=== PATIENT | female | born 1975 | race Caucasian/White ===

== ENCOUNTER 2018-12-29 17:57 | Inpatient (IN) | payer MEDICAID ==
[~2018-12-29] VITALS: Ht 165.1 cm; Wt 87.8 kg
[~2018-12-29 17:57] MED LIST: ACET325T45 PO; CEPH500C PO; DOCU-144 PO
[2018-12-29 18:12] VITALS: BP 129/78; PULSE 113; RESP 18
[2018-12-29 18:13] VITALS: Ht 165.1 cm; Wt 87.8 kg
--- NOTE | 2018-12-29 18:21 | TRIAGE ---
OB Triage Datetime Report Generated by CPN: 12/29/2018 18:20 Datetime: 12/29/2018 18:18 Time of Arrival: 12/29/2018 17:37 EGA: 38.4 Arrived By: Ambulatory Arrived From: Home Chief Complaint: PT. CAME IN C/O ABD. PAIN Movement: Present Contractions: Irregular Rupture of Membranes: Denies Vaginal Bleeding: None Vaginal Discharge: Denies Recent Sexual Intercouse: Denies Abdominal Trauma: Not Applicable Patient Complaints: Contractions; Cramping; Back Pain Provider Notified: DELMAR Initial Plan: EFM/SVE Datetime: 12/29/2018 18:08 Vaginal Exam Dilatation (cms): 2.5 Effacement (%): 80 Station: -2 Exam By: kike Vaginal Bleeding: None Cervix, Consistency: Soft Cervix, Position: Posterior
[2018-12-29] MEDS ORDERED: LIDOCAINE 1% (MPF) 30 ML INJ INJ PRN (18:30)
[2018-12-29] MEDS ORDERED: CARBOPROST 250 MCG INJ IM PRN (18:30)
[2018-12-29] MEDS ORDERED: OXYTOCIN 30 UNITS/LR 500 ML IV SCH ×3 (18:30)
[2018-12-29] MEDS ORDERED: OXYTOCIN 30 UNITS/LR 500 ML IV PRN (18:30)
[2018-12-29] MEDS ORDERED: METHYLERGONOVINE 0.2 MG INJ IM PRN (18:30)
[2018-12-29] MEDS ORDERED: MISOPROSTOL 200 MCG TAB PR PRN (18:30)
[2018-12-29] MEDS ORDERED: IBUPROFEN 600 MG TAB PO PRN (18:30)
[2018-12-29] MEDS: BUTORPHANOL 2 MG INJ IV PRN (20:53)
[2018-12-29] MEDS: LACTATED RINGER'S 1,000 ML IV SCH (20:59)
[2018-12-30] MEDS: BUTORPHANOL 2 MG INJ IV PRN (01:21)
[2018-12-30] MEDS: LACTATED RINGER'S 1,000 ML IV SCH ×2 (05:57→16:12)
--- NOTE | 2018-12-30 07:29 | PREAC ---
Date/Time of Note Date/Time of Note DATE: 12/30/18 TIME: 07:28 Anesthesia Eval and Record Evaluation Time Pre-Procedure Interview DATE: 12/30/18 TIME: 07:28 Age 43 Sex female NPO: 8 hrs Preoperative diagnosis iup at term Planned procedure labor epidural Past Medical History Past Medical History: Includes GI: Obesity Surgery & Anesthesia Issues No known issue Meds Anticoagulation: No Beta Francisco within 24 hr: No Reason Beta Francisco not given: Pt. not on B-Francisco Reported Medications Cephalexin* (Cephalexin*) 500 Mg Capsule, 500 MG PO Q6, #28 CAP 12/29/18 Current Medications Lactated Ringer's 1,000 ml @ 125 mls/hr Q8H IV Last administered on 12/30/18at 05:57; Admin Dose 125 MLS/HR; Start 12/29/18 at 18:20 Butorphanol Tartrate (Stadol) 2 mg Q2H PRN IV .PAIN SCALE 6-10 Last administered on 12/30/18at 01:21; Admin Dose 2 MG; Start 12/29/18 at 18:30 Lidocaine (Xylocaine 1% (Mpf)) 30 ml ONCE PRN INJ .EPISIOTOMY; Start 12/29/18 at 18:30 Oxytocin/Lactated Ringer's 500 ml @ 500 mls/hr ONCE POST IV ; Start 12/29/18 at 18:30 Oxytocin/Lactated Ringer's 500 ml @ 125 mls/hr POST IV ; Start 12/29/18 at 18:30 Ibuprofen (Motrin) 600 mg ONCE PRN PO .PAIN 1-5; Start 12/29/18 at 18:30 Oxytocin/Lactated Ringer's 500 ml @ 0 mls/hr ONCE PRN IV .VAGINAL BLEEDING; Start 12/29/18 at 18:30 Methylergonovine Maleate (Methergine) 0.2 mg ONCE PRN IM .VAGINAL BLEEDING; Start 12/29/18 at 18:30 Carboprost Tromethamine (Hemabate) 250 mcg ONCE PRN IM .VAGINAL BLEEDING; Start 12/29/18 at 18:30 Misoprostol (Cytotec) 1,000 mcg ONCE PRN [place] .VAGINAL BLEEDING; Start 12/29/18 at 18:30 Oxytocin/Lactated Ringer's 500 ml @ 0 mls/hr FOR AUGMENTATION IV ; Start 12/29/18 at 18:30 Meds reviewed: Yes Allergies Coded Allergies: No Known Allergy (Unverified , 12/29/18) Allergies Reviewed: Yes Labs/Studies Labs Reviewed: Reviewed by anesthesiologist Result Diagram: 12/29/18 1842 12/29/18 1843 Laboratory Tests 12/29/18 18:42 12/29/18 18:43 Blood Bank Test 12/29/18 18:43 Antibody Screen NEGATIVE Blood Type A POSITIVE Rh Immune Globulin Candidate NO test: Positive Pre-procedure Exam Last vitals Vital Signs Date Temp Pulse Resp B/P (MAP) Pulse Ox O2 O2 Flow FiO2 Time Delivery Rate 12/29/18 98.2 113 18 129/78 Room Air 18:12 (95) Airway: Adequate mouth opening, Adequate thyromental dist Mallampati: Mallampati II Teeth: Normal Lung: Normal Heart: Normal ASA Physical Status ASA physical status: 2 Emergency: None Planned Anesthetic Neuraxial: Epidural Planned Pain Management Parenteral pain med Pre-operative Attestations Prior to commencing anesthesia and surgery, the patient was re-evaluated, there was verification of: *The patient's identity *The results of appropriate recent lab work and preoperative vital signs *The above evaluation not changing prior to induction *Anesthetic plan, risk benefits, alternative and complications discussed with patient/family; questions answered; patient/family understands, accepts and wishes to proceed. TAYLA GILMORE Dec 30, 2018 07:29
[2018-12-30] MEDS ORDERED: NALOXONE (0.4 MG/ML) INJ IV PRN (07:30)
[2018-12-30] MEDS ORDERED: FENTAnyl 2MCG/ML-ROPIV 0.2% 100 ML BAG EPI SCH (07:30)
[2018-12-30] MEDS ORDERED: FENTAnyl 2MCG/ML-ROPIV 0.2% 100 ML ONE (07:31)
--- NOTE | 2018-12-30 18:59 | HP ---
Date/Time of Note Date/Time of Note DATE: 12/30/18 TIME: 18:57 OB - History Hx of Present Free Text/Dictation 44-year-old 6 para 4 with due date of January 08, 2019 with at 38 weeks and 3 days who reported to labor and delivery in early labor yesterday. She also complaining of significant left upper quadrant pain that seems to be musculoskeletal in origin and left back pain. She denies fevers or chills. She already received epidural. She progressed to 4 cm of dilation. Her OB history is significant for history of macrosomia in the past. She reports delivering a 10 pound baby without any difficulties. Care: Good Care Ultrasounds: Normal mid trimester US Obstetrical Complications: None Medical Complications: None Past Family/Social History * Past Medical, Surgical, Family and Obstetric Histories reviewed from chart. OB Admission Exam Vital Signs Vital Signs Vital Signs Date Temp Pulse Resp B/P (MAP) Pulse Ox O2 O2 Flow FiO2 Time Delivery Rate 12/29/18 98.2 113 18 129/78 Room Air 18:12 (95) Physical Exam HEENT: WNL Heart: Rhythm Normal Lungs: Clear, Equal Abdomen: WNL Extremities: Normal Reflexes: Normal Cervical Dilatation: 4cm Last 72 hours Lab Results CBC & BMP 12/29/18 18:42 12/29/18 18:43 Liver Function Test 12/29/18 18:43 Alanine Aminotransferase (ALT/SGPT) 20 Albumin 3.5 Alkaline Phosphatase 242 H Aspartate Amino Transf (AST/SGOT) 19 Direct Bilirubin 0.00 Total Protein 7.2 OB Assessment/Plan Other Assessment: Early labor Left upper quadrant pain and left back pain, unknown etiology Induction Method: per Pitocin Protocol Other plan: Artificial rupture of membranes done. amniotic fluid are clear ABBE JACOBSEN MD Dec 30, 2018 18:59
--- NOTE | 2018-12-30 21:58 | LDN ---
Date/Time of Note Date/Time of Note DATE: 12/30/18 TIME: 21:56 Delivery Summary Weeks of Gestation 39 weeks Placenta Delivered: Spontaneously Meconium: none Episiotomy: No Anesthesia type: Epidural Estimated blood loss: 150 Sponge & Needle done & correct: Yes All needle counts correct: Yes Any foreign bodies felt in the: No Delivery Information Sex Sex: male Apgars 1 Minute: 9 5 Minute: 9 Suctioning Nose & mouth suctioned at uriel: No Delee suction performed: No Umbilical Cord Umbilical cord with: 3 Vessels Cord presentations: no nuchal cord Cord Blood was obtained: Yes Mother & Baby Disposition Disposition Mom & Baby to Maternity; Good: Yes ROBERT ABEL MD Dec 30, 2018 21:58
[2018-12-30] MEDS ORDERED: morphine 10 MG INJ IV ONE (23:00)
[2018-12-31] VITALS (8 sets, daily range): BP systolic 102–140; BP diastolic 60–81; PULSE 71–88; RESP 17–19
[2018-12-31] MEDS ORDERED: OXYTOCIN 30 UNITS/LR 500 ML IV PRN (01:00)
[2018-12-31] MEDS ORDERED: METHYLERGONOVINE 0.2 MG INJ IM PRN (01:00)
[2018-12-31] MEDS ORDERED: ACETAMINOPHEN 325 MG TAB PO PRN (01:00)
[2018-12-31] MEDS ORDERED: BENZOCAINE 20% 56 ML SPRAY TOP PRN (01:00)
[2018-12-31] MEDS: IBUPROFEN 600 MG TAB PO SCH ×5 (01:00→23:39)
[2018-12-31] MEDS ORDERED: DIBUCAINE 1% 30 GM OINT TOP PRN (01:00)
[2018-12-31] MEDS ORDERED: CARBOPROST 250 MCG INJ IM PRN (01:00)
[2018-12-31] MEDS ORDERED: MISOPROSTOL 200 MCG TAB PR PRN (01:00)
[2018-12-31] MEDS ORDERED: WITCH HAZEL/GLYCERIN PAD PR PRN (01:00)
[2018-12-31] MEDS: LACTATED RINGER'S 1,000 ML IV* SCH ×2 (03:00→21:12)
--- NOTE | 2018-12-31 07:43 | DS ---
Date/Time of Note Date/Time of Note DATE: 12/31/18 TIME: 07:42 Obstetrical Discharge Record Final Diagnosis Final Diagnosis: Term delivered Vaginal Delivery Obstetrical Delivery: Spontaneous Complications Augmentation: Yes Induction: Yes Rupture of Membranes: No Condition on Discharge Physical Assessment Voiding: Yes Bowel Movement: Yes Breast: Soft, non-tender, Filling Fundus: Firm Abdomen and Incision: soft, not tender Calf Tenderness: No Patient Condition: Good ABBE JACOBSEN MD Dec 31, 2018 07:42
[2018-12-31] MEDS: HYDROCODONE/APAP (5/325) TAB PO PRN ×3 (07:56→22:20)
[2018-12-31] MEDS: SENNA/DOCUSATE NA (8.6MG/50MG) TAB PO SCH ×2 (11:31→21:12)
--- NOTE | 2018-12-31 12:28 | PAC ---
Date/Time of Note Date/Time of Note DATE: 12/31/18 TIME: 12:28 Post-Anesthesia Notes Post-Anesthesia Note Last documented vital signs Vital Signs Date Temp Pulse Resp B/P (MAP) Pulse Ox O2 O2 Flow FiO2 Time Delivery Rate 12/31/18 97.6 79 18 114/64 Room Air 11:37 (81) Activity: WNL Respiratory function: WNL Cardiovascular function: WNL Mental status: Baseline Pain reasonably controlled: Yes Hydration appropriate: Yes Nausea/Vomiting absent: Yes TAYLA GILMORE Dec 31, 2018 12:28
[2018-12-31] MEDS ORDERED: BISACODYL 10 MG SUPP PR PRN (23:30)
[2018-12-31] MEDS: MAGNESIUM HYDROXIDE 30ML CUP PO PRN (23:40)
--- NOTE | 2019-01-01 01:24 | DELSUM ---
Delivery Summary A-C Datetime Report Generated by Joseph: 01/01/2019 01:24 DELIVERY PERSONNEL Retail Project Merchandiser: Canuto, Malia MATERNAL INFORMATION Delivery Anesthesia: Epidural Medications in Delivery: LR WITH 30 UNITS OF PITOCIN Delivery QBL (ml): 150 Placenta Cultured: No Maternal Complications: None LABOR SUMMARY EDC: 01/08/2019 00:00 No. Babies in Womb: 1 Attempted: No Labor Anesthesia: Epidural LABOR INFORMATION Reason for Induction: Not Applicable Onset of Labor: 12/29/2018 19:00 Complete Dilatation: 12/30/2018 20:44 Oxytocin: Augmentation (Annotations: Data stored by [facility] on behalf of user) Group B Beta Strep: Negative Antibiotics # of Doses: 0 Steroids Given: None Reason Steroids Not Administered: Not Applicable MEMBRANES Membranes Rupture Method: Artificial Rupture of Membranes: 12/30/2018 18:49 Length of Rupture (hr): 2.93 Amniotic Fluid Color: Clear Amniotic Fluid Amount: Small Amniotic Fluid Odor: None STAGES OF LABOR Stage 1 hr: 25 Stage 1 min: 44 Stage 2 hr: 1 Stage 2 min: 1 Stage 3 hr: 0 Stage 3 min: 4 Total Time in Labor hr: 26 Total Time in Labor min: 49 VAGINAL DELIVERY Episiotomy: None Laceration Extension: N/A Laceration Type: None Laceration Repair: Not Applicable Initial Vag Sponge Count: 10 Final Vag Sponge Count: 10 Initial Vag Sharps Count: 1 Final Vag Sharps Count: 1 Sponge Count Correct: Yes Sharps Count Correct: Yes BABY A INFORMATION Infant Delivery Date/Time: 12/30/2018 21:45 Method of Delivery: Vaginal Born in Route : No : N/A Forceps: N/A Vacuum Extraction: N/A Shoulder Dystocia : No SHOULDER DYSTOCIA BABY A Delivery Date/Time: 12/30/2018 21:45 PRESENTATION/POSITION BABY A Presentation: Cephalic Cephalic Presentation: Vertex Vertex Position: Left Occipital Anterior Breech Presentation: Complete PLACENTA INFORMATION BABY A Placenta Delivery Time : 12/30/2018 21:49 Placenta Method of Delivery: Spontaneous Placenta Status: Delivered SCORES BABY A Heart Rate 1 min: >100 bpm Resp Effort 1 min: Good Cry Reflex Irritability 1 min: Cough/Sneeze/Pulls Away Muscle Tone 1 min: Active Motion Color 1 min: Body [place], Extremit Blue Resuscitation Effort 1 min: Tactile Stimulation SCORE 1 MIN: 9 Heart Rate 5 min: >100 bpm Resp Effort 5 min: Good Cry Reflex Irritability 5 min: Cough/Sneeze/Pulls Away Muscle Tone 5 min: Active Motion Color 5 min: Body [place], Extremit Blue Resuscitation Effort 5 min: Tactile Stimulation SCORE 5 MIN: 9 INFORMATION BABY A Gestational Age at Delivery: 38.5 Gestational Status: Early Term- 37- 38.6 Weeks Infant Outcome : Liveborn, with signs of life Infant Condition : Stable Sex: Male IDENTIFICATION/MEDS BABY A ID Band Number: [id number] ID Band Location: Right Leg; Left Arm Sensor Applied: Yes Sensor Number: [id number] Sensor Location : Cord Clamp Vitamin K Given : Not Given Erythromycin Given: Not Given WEIGHT/LENGTH BABY A Birthweight (gm): 4025 Weight (lb): 8 Weight (oz): 14 Length (in): 19.50 Infant Length (cm): 49.53 CORD INFORMATION BABY A No. Cord Vessels: 3 Nuchal Cord : N/A Cord Blood Taken: Yes Infant Suction: Mouth; Nose ASSESSMENT BABY A Complications: None Physical Findings at Delivery: Within Normal Limits Infant Respirations: Appears Normal Party Supply Specialist/ALS Called : No Care By: Hank NELSON Transferred To: Remains with Mother
[2019-01-01] MEDS: LACTATED RINGER'S 1,000 ML IV* SCH (01:54)
[2019-01-01] MEDS: HYDROCODONE/APAP (5/325) TAB PO PRN ×2 (03:24→15:04)
[2019-01-01 04:30] VITALS: BP 136/78; PULSE 88; RESP 18
[2019-01-01] MEDS: IBUPROFEN 600 MG TAB PO SCH ×4 (06:19→23:37)
[2019-01-01] MEDS ORDERED: OXYCODONE/ACETAMINOPHEN (5/325) TAB PO PRN (06:30)
[2019-01-01 08:15] VITALS: BP 120/66; PULSE 79; RESP 17
[2019-01-01] MEDS: SENNA/DOCUSATE NA (8.6MG/50MG) TAB PO SCH ×2 (08:56→21:01)
[2019-01-01] MEDS: MAGNESIUM HYDROXIDE 30ML CUP PO PRN (08:56)
[2019-01-01] MEDS ORDERED: DIPHTH/TET/ACEL PERTUSS (ADULT) 0.5 ML VIAL IM* ONE (09:00)
[2019-01-01] MEDS ORDERED: BISACODYL 10 MG SUPP PR ONE (10:00)
[2019-01-01] MEDS ORDERED: MINERAL OIL 30ML CUP PO ONE (10:00)
[2019-01-01] MEDS ORDERED: MAGNESIUM CITRATE 300 ML BTL PO ONE (10:00)
[2019-01-01] MEDS ORDERED: ONDANSETRON (ODT) 4 MG TAB ODT STA (12:33)
[2019-01-01] MEDS ORDERED: NA PHOSPHATE/BIPHOS 133 ML ENEMA PR ONE (13:00)
[2019-01-01] MEDS ORDERED: SENNA/DOCUSATE NA (8.6MG/50MG) TAB PO PRN (14:00)
--- NOTE | 2019-01-01 14:06 | CONS ---
Assessment/Plan Assessment/Plan Hospital Course (Demo Recall) Assessment and plan 1. Abdominal pain. Etiology unknown at present. Follow-up on CT scan of the abdomen and pelvis. Will provide with laxatives as needed for constipation. Discussed with pharmacy, will provide with appropriate analgesics. Follow-up on urine culture. Follow-up on lipase 2. Constipation. Provide with laxatives with senna lax. Suppository as needed. 3. Anemia. Likely acute blood loss given recent delivery. Monitor H&H trend. 4. Leukocytosis. Monitor trend. Antibiotic regimen pending clinical course Discussed POC with Dr. Feng Consultation Date/Type/Reason Admit Date/Time Dec 29, 2018 at 18:15 Reason for Consultation Medical management Date/Time of Note DATE: 01/01/19 TIME: 13:58 Hx of Present Illness this is a 43-year-old female 6 para 5 who just had recent vaginal delivery on December 30, 2018 who reports having diffuse abdominal pain startinig from left upper abdominial quadrant and radiating now towards whole abdomen and back. She does report that she has not had bowel movement since December 20, 2018. Patient also states that she has had cholelithiasis with cholecystectomy in the past. She denies any nausea vomiting. Only reports constipation and diffuse abdominal pain. No fevers noted. Labs are pending at present. We will evalu ate her for the aformentiond issues. 12 point review of systems obtained entirely negative except as mentioned in history of present illness Past Medical History Medical/surgical history 1. 6 para 5 2. Reported cholelithiasis with cholecystectomy Home Meds Reported Medications Cephalexin* (Cephalexin*) 500 Mg Capsule, 500 MG PO Q6, #28 CAP 12/29/18 Medications Current Medications Lactated Ringer's 1,000 ml @ 125 mls/hr Q8H IV* Last administered on 12/31/18at 03:00; Admin Dose 125 MLS/HR; Start 12/31/18 at 00:35 Ibuprofen (Motrin) 600 mg Q6 PO Last administered on 01/01/19at 12:17; Admin Dose 600 MG; Start 12/31/18 at 01:00 Acetaminophen (Tylenol Tab) 650 mg Q4H PRN PO .PAIN 1-5; Start 12/31/18 at 01:00 Acetaminophen/ Hydrocodone Bitart ([place] (5/325)) 1 tab Q4H PRN PO .PAIN 1-5 Last administered on 01/01/19at 03:24; Admin Dose 1 TAB; Start 12/31/18 at 01:00 Senna/Docusate Sodium (Senokot-S) 1 tab BID PO Last administered on 01/01/19at 08:56; Admin Dose 1 TAB; Start 12/31/18 at 09:00 Witch Karoline/ Glycerin (Tucks Pads) 1 pad BEDSIDE MEDICATION PRN [place] .HEMORRHOID/EPISIOTOMY PAIN; Start 12/31/18 at 01:00 Benzocaine (Dermoplast [place]) 1 spray BEDSIDE MEDICATION PRN [place] .HEMMORHOID/EPISIOTOMY PAIN; Start 12/31/18 at 01:00 Dibucaine (Nupercainal) 1 applic BEDSIDE MEDICATION PRN [place] .HEMM [place]HOID/EPISIOTOMY; Start 12/31/18 at 01:00 Oxytocin/Lactated Ringer's 500 ml @ 0 mls/hr ONCE PRN IV .VAGINAL BLEEDING; Start 12/31/18 at 01:00 Methylergonovine Maleate (Methergine) 0.2 mg ONCE PRN IM .VAGINAL BLEEDING; Start 12/31/18 at 01:00 Carboprost Tromethamine (Hemabate) 250 mcg ONCE PRN IM .VAGINAL BLEEDING; Start 12/31/18 at 01:00 Misoprostol (Cytotec) 1,000 mcg ONCE PRN [place] .VAGINAL BLEEDING; Start 12/31/18 at 01:00 Magnesium Hydroxide (Milk Of Mag) 30 ml BID PRN PO CONSTIPATION Last ad ministered on 01/01/19at 08:56; Admin Dose 30 ML; Start 12/31/18 at 23:30 Bisacodyl (Dulcolax Supp) 10 mg DAILY PRN [place] CONSTIPATION Last administered on 01/01/19at 03:24; Admin Dose 10 MG; Start 12/31/18 at 23:30 Oxycodone/ Acetaminophen (Percocet (5/ 325)) 2 tab Q4H PRN PO MODERATE PAIN LEVEL 4-6 Last administered on 01/01/19at 06:43; Admin Dose 2 TAB; Start 01/01/19 at 06:30 Allergies: Coded Allergies: No Known Allergy (Unverified , 12/29/18) Family History Significant Family History: no pertinent family hx Social History Alcohol Use: none Smoking Status: Never smoker Drug Use: none Exam/Review of Systems Exam Vitals Vital Signs Date Temp Pulse Resp B/P (MAP) Pulse Ox O2 O2 Flow FiO2 Time Delivery Rate 01/01/19 98.2 79 17 120/66 Room Air 08:15 (84) Intake and Output 12/31/18 12/31/18 01/01/19 1515:00 23:00 07:00 IntakeIntake Total 375 ml BalanceBalance 375 ml Constitutional: alert, oriented Psych: nl mood/affect Head: normocephalic Eyes: nl conjunctiva Neck: supple, non-tender Respiratory: clear to auscultation Cardiovascular: other (Regular rate) Gastrointestinal: tender (Appears slightly distended likely from previous ) Extremities: normal pulses Neurological: HAND CLOTH FOLDER II-XII intact, nl mental status, nl speech Results Result Diagram: 12/31/18 0443 12/30/18 2317 Medications Medication Current Medications Lactated Ringer's 1,000 ml @ 125 mls/hr Q8H IV* Last administered on 12/31/18at 03:00; Admin Dose 125 MLS/HR; Start 12/31/18 at 00:35 Ibuprofen (Motrin) 600 mg Q6 PO Last administered on 01/01/19at 12:17; Admin Dose 600 MG; Start 12/31/18 at 01:00 Acetaminophen (Tylenol Tab) 650 mg Q4H PRN PO .PAIN 1-5; Start 12/31/18 at 01:00 Acetaminophen/ Hydrocodone Bitart ([place] (5/325)) 1 tab Q4H PRN PO .PAIN 1-5 Last administered on 01/01/19at 03:24; Admin Dose 1 TAB; Start 12/31/18 at 01:00 Senna/Docusate Sodium (Senokot-S) 1 tab BID PO Last administered on 01/01/19at 08:56; Admin Dose 1 TAB; Start 12/31/18 at 09:00 Witch Karoline/ Glycerin (Tucks Pads) 1 pad BEDSIDE MEDICATION PRN [place] .HEMORRHOID/EPISIOTOMY PAIN; Start 12/31/18 at 01:00 Benzocaine (Dermoplast [place]) 1 spray BEDSIDE MEDICATION PRN TOP .HEMMORHOID/EPISIOTOMY PAIN; Start 12/31/18 at 01:00 Dibucaine (Nupercainal) 1 applic BEDSIDE MEDICATION PRN TOP .HEMMORHOID/EPISIOTOMY; Start 12/31/18 at 01:00 Oxytocin/Lactated Ringer's 500 ml @ 0 mls/hr ONCE PRN IV .VAGINAL BLEEDING; Start 12/31/18 at 01:00 Methylergonovine Maleate (Methergine) 0.2 mg ONCE PRN IM .VAGINAL BLEEDING; Start 12/31/18 at 01:00 Carboprost Tromethamine (Hemabate) 250 mcg ONCE PRN IM .VAGINAL BLEEDING; Start 12/31/18 at 01:00 Misoprostol (Cytotec) 1,000 mcg ONCE PRN [place] .VAGINAL BLEEDING; Start 12/31/18 at 01:00 Magnesium Hydroxide (Milk Of Mag) 30 ml BID PRN PO CONSTIPATION Last administered on 01/01/19at 08:56; Admin Dose 30 ML; Start 12/31/18 at 23:30 Bisacodyl (Dulcolax Supp) 10 mg DAILY PRN [place] CONSTIPATION Last administered on 01/01/19at 03:24; Admin Dose 10 MG; Start 12/31/18 at 23:30 Oxycodone/ Acetaminophen (Percocet (5/ 325)) 2 tab Q4H PRN PO MODERATE PAIN LEVEL 4-6 Last administered on 01/01/19at 06:43; Admin Dose 2 TAB; Start 01/01/19 at 06:30 BRYCE SUAREZ NP Jan 01, 2019 14:06
[2019-01-01 16:00] VITALS: BP 132/77; PULSE 88; RESP 18
[2019-01-01] MEDS ORDERED: MINERAL OIL 133 ML ENEMA PR ONE (18:00)
[2019-01-01] MEDS: LACTULOSE 30ML CUP PO SCH ×3 (18:10→23:00)
[2019-01-01] MEDS: SOD CHLORIDE 0.9% 1,000 ML IV SCH (18:10)
[2019-01-01 19:50] VITALS: BP 116/67; PULSE 92; RESP 19
[2019-01-01] MEDS: HEPARIN 5,000 UNIT/1 ML VIAL SC SCH (22:32)
[2019-01-02 00:25] VITALS: BP 153/87; PULSE 103; RESP 20
[2019-01-02] MEDS ORDERED: ONDANSETRON 4 MG INJ IV PRN (00:30)
[2019-01-02] MEDS ORDERED: KETOROLAC 30 MG INJ IV STA (00:31)
[2019-01-02] MEDS ORDERED: ONDANSETRON 4 MG INJ IV STA (00:35)
[2019-01-02] MEDS ORDERED: ONDANSETRON INJ 8 MG in DEXTROSE 5% 50 ML IV ONE (01:00)
[2019-01-02] MEDS ORDERED: NA PHOSPHATE/BIPHOS 133 ML ENEMA PR ONE (01:00)
[2019-01-02] MEDS ORDERED: ONDANSETRON INJ 8 MG in DEXTROSE 5% 50 ML IV PRN (01:00)
[2019-01-02] MEDS ORDERED: ACETAMINOPHEN 1000MG/100ML IV 100 ML IVPB ONE (01:00)
[2019-01-02] MEDS: LACTULOSE 30ML CUP PO SCH (01:00)
[2019-01-02 03:40] VITALS: BP 120/61; PULSE 85; RESP 19
[2019-01-02] MEDS: SOD CHLORIDE 0.9% 1,000 ML IV SCH ×2 (04:26→15:05)
[2019-01-02] MEDS: IBUPROFEN 600 MG TAB PO SCH ×2 (06:00)
[2019-01-02] MEDS: HEPARIN 5,000 UNIT/1 ML VIAL SC SCH ×2 (06:01→15:01)
[2019-01-02] MEDS ORDERED: HYDROmorphONE 1 MG/ML SYG IV ONE (07:00)
[2019-01-02 08:30] VITALS: BP 146/70; PULSE 83; RESP 18
[2019-01-02] MEDS: SENNA/DOCUSATE NA (8.6MG/50MG) TAB PO SCH (09:00)
[2019-01-02] MEDS ORDERED: KETOROLAC 30 MG INJ IV PRN (11:00)
[2019-01-02 12:15] VITALS: BP 126/65; PULSE 93; RESP 20
--- NOTE | 2019-01-02 14:21 | PN ---
Date/Time of Note Date/Time of Note DATE: 01/02/19 TIME: 14:19 Assessment/Plan VTE Prophylaxis Risk score (from [facility])>0 risk: 1 SCD applied (from [facility]): No SCD contraindicated: other Pharmacological prophylaxis: heparin Lines/Catheters IV Catheter Type (from [facility]): Peripheral IV Assessment/Plan Hospital Course 1. Abdominal pain. Repeat KUB with no acute findings. Patient did report h aving bowel movement x6. Continue with laxatives. Overall improved 2. Constipation. Encourage oral fluid intake. Encourage ambulation. Improved with laxatives. Patient did have bowel movement. 3. Anemia. Monitor H&H trend. Stable at present. 4. Leukocytosis. Monitor trend. Antibiotic regimen pending clinical course Disposition and plan. Overall improved. Stable for discharge from medical standpoint. Discussed POC with Dr. Feng Result Diagram: 01/02/19 134 01/01/19 1404 Results 24hrs Laboratory Tests Test 01/01/19 18:00 01/02/19 13:45 Urine Color ASHLEY Urine Clarity CLEAR Urine pH 5.0 Urine Specific [place] 1.029 Urine Ketones 1+ H Urine Nitrite NEGATIVE Urine Bilirubin NEGATIVE Urine Urobilinogen NEGATIVE Urine Leukocyte Esterase NEGATIVE Urine Microscopic RBC 13 H Urine Microscopic WBC 3 Urine Mucus MODERATE Urine Hemoglobin 1+ H Urine Glucose NEGATIVE Urine Total Protein 1+ H White Blood Count 14.4 H Red Blood Count 3.51 L Hemoglobin 9.8 L Hematocrit 30.2 L Mean Corpuscular Volume 86.0 Mean Corpuscular Hemoglobin 27.9 L Mean Corpuscular Hemoglobin Concent 32.5 Red Cell Distribution Width 15.3 H Platelet Count 280 Mean Platelet Volume 9.9 Immature Granulocytes % 1.200 H Neutrophils % 89.4 H Lymphocytes % 5.7 L Monocytes % 3.5 Eosinophils % 0.0 Basophils % 0.2 Nucleated Red Blood Cells % 0.0 Immature Granulocytes # 0.170 H Neutrophils # 12.9 H Lymphocytes # 0.8 Monocytes # 0.5 Eosinophils # 0.0 Basophils # 0.0 Nucleated Red Blood Cells # 0.0 Subjective 24 Hr Interval Summary Free Text/Dictation Patient reports less abdominal pain. Exam/Review of Systems Exam Vitals Vital Signs Date Temp Pulse Resp B/P (MAP) Pulse Ox O2 O2 Flow FiO2 Time Delivery Rate 01/02/19 98.6 93 20 126/65 Room Air 12:15 (85) 01/02/19 99 00:25 Intake and Output 01/01/19 01/01/19 01/02/19 1515:00 23:00 07:00 IntakeIntake Total 100 ml 354 ml BalanceBalance 100 ml 354 ml Exam Constitutional: alert, oriented Psych: nl mood/affect Head: normocephalic Eyes: nl conjunctiva Neck: supple, non-tender Respiratory: clear to auscultation Cardiovascular: other (Regular rate) Gastrointestinal: tender (Appears slightly distended likely from previous ) Extremities: normal pulses Neurological: MEDICAL STAFFING COORDINATOR II-XII intact, nl mental status, nl speech Results Results 24hrs Laboratory Tests Test 01/01/19 18:00 01/02/19 13:45 Urine Color ASHLEY Urine Clarity CLEAR Urine pH 5.0 Urine Specific [place] 1.029 Urine Ketones 1+ H Urine Nitrite NEGATIVE Urine Bilirubin NEGATIVE Urine Urobilinogen NEGATIVE Urine Leukocyte Esterase NEGATIVE Urine Microscopic RBC 13 H Urine Microscopic WBC 3 Urine Mucus MODERATE Urine Hemoglobin 1+ H Urine Glucose NEGATIVE Urine Total Protein 1+ H White Blood Count 14.4 H Red Blood Count 3.51 L Hemoglobin 9.8 L Hematocrit 30.2 L Mean Corpuscular Volume 86.0 Mean Corpuscular Hemoglobin 27.9 L Mean Corpuscular Hemoglobin Concent 32.5 Red Cell Distribution Width 15.3 H Platelet Count 280 Mean Platelet Volume 9.9 Immature Granulocytes % 1.200 H Neutrophils % 89.4 H Lymphocytes % 5.7 L Monocytes % 3.5 Eosinophils % 0.0 Basophils % 0.2 Nucleated Red Blood Cells % 0.0 Immature Granulocytes # 0.170 H Neutrophils # 12.9 H Lymphocytes # 0.8 Monocytes # 0.5 Eosinophils # 0.0 Basophils # 0.0 Nucleated Red Blood Cells # 0.0 Medications Medication Current Medications Ibuprofen (Motrin) 600 mg Q6 PO Last administered on 01/01/19at 18:11; Admin Dose 600 MG; Start 12/31/18 at 01:00; Status Hold Acetaminophen (Tylenol Tab) 650 mg Q4H PRN PO .PAIN 1-5; Start 12/31/18 at 01:00 Acetaminophen/ Hydrocodone Bitart ([place] (5/325)) 1 tab Q4H PRN PO .PAIN 1-5 Last administered on 01/01/19at 15:04; Admin Dose 1 TAB; Start 12/31/18 at 01:00 Senna/Docusate Sodium (Senokot-S) 1 tab BID PO Last administered on 01/01/19at 21:01; Admin Dose 1 TAB; Start 12/31/18 at 09:00 Witch Karoline/ Glycerin (Tucks Pads) 1 pad BEDSIDE MEDICATION PRN [place] .HEMORRHOID/EPISIOTOMY PAIN; Start 12/31/18 at 01:00 Benzocaine (Dermoplast [place]) 1 spray BEDSIDE MEDICATION PRN TOP .HEMMORHOID/EPISIOTOMY PAIN; Start 12/31/18 at 01:00 Dibucaine (Nupercainal) 1 applic BEDSIDE MEDICATION PRN TOP .HEMMORH OID/EPISIOTOMY; Start 12/31/18 at 01:00 Oxytocin/Lactated Ringer's 500 ml @ 0 mls/hr ONCE PRN IV .VAGINAL BLEEDING; Start 12/31/18 at 01:00 Methylergonovine Maleate (Methergine) 0.2 mg ONCE PRN IM .VAGINAL BLEEDING; Start 12/31/18 at 01:00 Carboprost Tromethamine (Hemabate) 250 mcg ONCE PRN IM .VAGINAL BLEEDING; Start 12/31/18 at 01:00 Misoprostol (Cytotec) 1,000 mcg ONCE PRN [place] .VAGINAL BLEEDING; Start 12/31/18 at 01:00 Magnesium Hydroxide (Milk Of Mag) 30 ml BID PRN PO CONSTIPATION Last admin istered on 01/01/19at 08:56; Admin Dose 30 ML; Start 12/31/18 at 23:30 Bisacodyl (Dulcolax Supp) 10 mg DAILY PRN [place] CONSTIPATION Last administered on 01/01/19at 03:24; Admin Dose 10 MG; Start 12/31/18 at 23:30 Oxycodone/ Acetaminophen (Percocet (5/ 325)) 2 tab Q4H PRN PO MODERATE PAIN LEVEL 4-6 Last administered on 01/01/19at 06:43; Admin Dose 2 TAB; Start 01/01/19 at 06:30 Senna/Docusate Sodium (Senokot-S) 1 tab BID PRN PO constipation ; Start 01/01/19 at 14:00 Sodium Chloride 1,000 ml @ 100 mls/hr Q10H IV Last administered on 01/02/19at 04:26; Admin Dose 100 MLS/HR; Start 01/01/19 at 18:00 Heparin Sodium (Porcine) (Heparin (5000 Units/1ml)) 5,000 unit Q8 SC Last administered on 01/02/19at 06:01; Admin Dose 5,000 UNIT; Start 01/01/19 at 22:00 Ondansetron HCl (Zofran Inj) 4 mg Q6H PRN IV NAUSEA AND/OR VOMITING; Start 01/02/19 at 00:30 Ketorolac Tromethamine (Toradol) 30 mg Q6H PRN IV PAIN LEVEL 1-3 Last administered on 01/02/19at 11:17; Admin Dose 30 MG; Start 01/02/19 at 11:00; Stop 01/05/19 at 10:59 BRYCE SUAREZ NP Jan 02, 2019 14:21
--- NOTE | 2019-01-02 15:46 | PD.PPDC ---
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
[2019-01-02 16:00] VITALS: BP 138/78; PULSE 70; RESP 18
--- NOTE | 2019-01-04 15:39 | QN ---
Documentation Comment 01.04.19 Was notified today of patient's blood infection (with MRSA). Called out to family and spoke to Shawn Desir () to inform them of finding. Patient and were notified already and were in the ER for follow up when phone call was made. Discussed case with BRYCE Veloz NP Jan 04, 2019 15:39
== END 2019-01-02 19:02 | disposition home or self-care (01) | DRG 807 ==
LOC: OBT 17:57 → L-D 17:58 → OBT 18:15 → L-D 20:04 → MS1 12-31 01:01
PROVIDERS: ADMIT Specialist; ATTEND Specialist
PROC: 10E0XZZ Delivery of Products of Conception, External Approach (ICD-10-PCS; principal; 2018-12-30)
PROC: 3E033VJ Introduction of Other Hormone into Peripheral Vein, Percutaneous Approach (ICD-10-PCS; 2018-12-30)
DX: O99.02 Anemia complicating childbirth (principal); Z37.0 Single live birth; Z3A.39 39 weeks gestation of pregnancy
CPT/HCPCS: 62322; 74018; 74176; 76815; 80048; 80053; 81001; 82150; 83690; 84560; 85025; 85610; 85730; 86592; 86850; 86900; 86901; 87086; 90715; G0463; J0131; J0595; J1170; J1644; J1885; J2270; J2405; J2590; J3010; J7030; J7120

== ENCOUNTER 2019-01-04 15:13 | Inpatient (IN) | payer MEDICAID ==
[~2019-01-04] VITALS: Ht 312.4 cm; Wt 81.1 kg
[2019-01-04] MEDS ORDERED: SODIUM CHLORIDE 0.9% 1L BAG IV* STA (15:21)
[2019-01-04] MEDS ORDERED: CEFEPIME 2GM/50 ML (PMX) 50 ML IVPB STA (15:21)
[2019-01-04] MEDS ORDERED: VANCOMYCIN 1 GM (PMX) 250 ML IVPB ONE (15:30)
[2019-01-04] MEDS ORDERED: ONDANSETRON 4 MG INJ ONE (15:52)
[2019-01-04] MEDS ORDERED: ONDANSETRON 4 MG INJ IV STA (15:53)
[2019-01-04] MEDS ORDERED: morphine 10 MG INJ IV ONE (16:30)
[2019-01-04] MEDS ORDERED: IOHEXOL 300MG/ML 150 ML BTL ONE (16:39)
[2019-01-04] MEDS ORDERED: SOD CHLORIDE 0.9% 100 ML ONE ×2 (16:39→17:07)
[2019-01-04] MEDS ORDERED: IOHEXOL 100 ML ONE (17:07)
[2019-01-04] MEDS ORDERED: MAGNESIUM SULFATE 4 GM/100 ML 100 ML IV SCH (18:00)
[2019-01-04] MEDS ORDERED: NACL 0.9% 3 ML SYG IV SCH ×2 (18:00→19:30)
[2019-01-04] MEDS ORDERED: CA GLUCONATE (GM) 10% 10ML INJ IV PRN (18:00)
[2019-01-04] MEDS ORDERED: ONDANSETRON 4 MG INJ IV PRN (19:30)
[2019-01-04] MEDS ORDERED: ALBUTEROL/IPRATROPIUM (NEB) 3 ML AMP HHN PRN (19:30)
[2019-01-04] MEDS ORDERED: hydrALAzine 20 MG INJ IV PRN (19:30)
[2019-01-04] MEDS ORDERED: DOCUSATE SODIUM 100 MG CAP PO PRN (19:30)
[2019-01-04] MEDS ORDERED: VANCOMYCIN IV PER PHARMACY XX SCH (19:30)
[2019-01-04] MEDS ORDERED: MAGNESIUM HYDROXIDE 30ML CUP PO PRN (19:30)
[2019-01-04] MEDS ORDERED: NITROGLYCERIN (SL) 0.4 MG TAB SL PRN (19:30)
[2019-01-04] MEDS ORDERED: ACETAMINOPHEN 325 MG TAB PO PRN (19:30)
[2019-01-04] MEDS: morphine 2 MG INJ IV PRN (20:36)
[2019-01-04] MEDS: SOD CHLORIDE 0.9% 1,000 ML IV SCH (20:49)
[2019-01-04] MEDS: MAGNESIUM SULFATE 20 GM/500 ML 500 ML IV SCH (20:49)
[2019-01-04] MEDS: CEFEPIME 2GM/50 ML (PMX) 50 ML IVPB SCH (22:00)
[2019-01-04] MEDS: METOCLOPRAMIDE 10 MG INJ IV SCH (22:57)
[2019-01-04] MEDS: KETOROLAC 30 MG INJ IV PRN (22:58)
[2019-01-05] VITALS (22 sets, daily range): BP systolic 113–146; BP diastolic 77–90; PULSE 78–93; RESP 17–37; Ht 312.4 cm; Wt 81.1 kg
[2019-01-05] MEDS: VANCOMYCIN 1 GM 250 ML IVPB SCH ×3 (01:20→15:55)
[2019-01-05] MEDS: MAGNESIUM SULFATE 20 GM/500 ML 500 ML IV SCH ×2 (03:40→08:59)
[2019-01-05] MEDS: SOD CHLORIDE 0.9% 1,000 ML IV SCH ×2 (05:22→09:00)
[2019-01-05] MEDS: CEFEPIME 2GM/50 ML (PMX) 50 ML IVPB SCH ×3 (05:39→21:26)
[2019-01-05] MEDS: FAMOTIDINE 20 MG INJ IV SCH (05:39)
[2019-01-05] MEDS: METOCLOPRAMIDE 10 MG INJ IV SCH (05:39)
[2019-01-05] MEDS ORDERED: PANTOPRAZOLE 40 MG INJ IV SCH (06:00)
[2019-01-05] MEDS: KETOROLAC 30 MG INJ IV PRN ×4 (06:09→18:16)
[2019-01-05] MEDS ORDERED: MAGNESIUM CITRATE 300 ML BTL PO ONE (10:00)
[2019-01-05] MEDS: RIFAMPIN 300 MG CAP PO SCH (15:05)
[2019-01-05] MEDS: morphine 2 MG INJ IV PRN (22:21)
[2019-01-06] VITALS (23 sets, daily range): BP systolic 129–151; BP diastolic 72–101; PULSE 75–101; RESP 21–33
[2019-01-06] MEDS: VANCOMYCIN 1.25 GM/NS 250 ML 250 ML IVPB SCH ×2 (00:25→08:50)
[2019-01-06] MEDS: LORAZEPAM 2 MG INJ IV PRN (00:25)
[2019-01-06] MEDS: SOD CHLORIDE 0.9% 1,000 ML IV SCH (00:32)
[2019-01-06] MEDS: FAMOTIDINE 20 MG INJ IV SCH (05:46)
[2019-01-06] MEDS: CEFEPIME 2GM/50 ML (PMX) 50 ML IVPB SCH (05:46)
[2019-01-06] MEDS ORDERED: POTASSIUM CHLORIDE (SR) 20 MEQ TAB PO STA (05:55)
[2019-01-06] MEDS: morphine 2 MG INJ IV PRN (07:19)
[2019-01-06] MEDS: RIFAMPIN 300 MG CAP PO SCH (08:49)
[2019-01-06] MEDS: KETOROLAC 30 MG INJ IV PRN ×2 (14:12→22:10)
[2019-01-06] MEDS ORDERED: LIDOCAINE 1% (MPF) 5 ML VIAL ONE (16:55)
[2019-01-06] MEDS: TRIMETHOPRIM/SULFAMETHOXAZOLE 20 ML in DEXTROSE 5% 500 ML IVPB SCH (17:34)
[2019-01-07] MEDS: TRIMETHOPRIM/SULFAMETHOXAZOLE 20 ML in DEXTROSE 5% 500 ML IVPB SCH ×2 (04:16→16:07)
[2019-01-07 04:29] VITALS: BP 148/85; PULSE 78; RESP 22
[2019-01-07] MEDS: KETOROLAC 30 MG INJ IV PRN (05:24)
[2019-01-07 07:39] VITALS: BP 134/89; PULSE 68; RESP 20
[2019-01-07] MEDS: FAMOTIDINE 20 MG TAB PO SCH (08:43)
[2019-01-07] MEDS: RIFAMPIN 300 MG CAP PO SCH (08:43)
[2019-01-07] MEDS ORDERED: POTASSIUM CHLORIDE 20 MEQ POWDER FOR ORAL SOLN PO ONE (10:00)
[2019-01-07 11:22] VITALS: BP 116/75; PULSE 68; RESP 19
[2019-01-07] MEDS: HYDROCODONE/APAP (5/325) TAB PO PRN ×2 (13:51→22:11)
[2019-01-07 15:18] VITALS: BP 128/65; PULSE 76; RESP 20
[2019-01-07 19:46] VITALS: BP 126/73; PULSE 75; RESP 20
[2019-01-07] MEDS: morphine 2 MG INJ IV PRN (22:21)
[2019-01-07 23:54] VITALS: BP 124/79; PULSE 74; RESP 20
[2019-01-08] MEDS: KETOROLAC 30 MG INJ IV PRN ×2 (01:40→21:27)
[2019-01-08 03:50] VITALS: BP 124/60; PULSE 77; RESP 20
[2019-01-08] MEDS: TRIMETHOPRIM/SULFAMETHOXAZOLE 20 ML in DEXTROSE 5% 500 ML IVPB SCH ×2 (04:31→15:55)
[2019-01-08 07:06] VITALS: BP 139/81; PULSE 81; RESP 20
[2019-01-08] MEDS: HYDROCODONE/APAP (5/325) TAB PO PRN ×2 (08:57→14:12)
[2019-01-08] MEDS: FAMOTIDINE 20 MG TAB PO SCH (08:57)
[2019-01-08] MEDS: RIFAMPIN 300 MG CAP PO SCH (08:57)
[2019-01-08 11:12] VITALS: BP 110/73; PULSE 67; RESP 20
[2019-01-08 15:49] VITALS: BP 128/78; PULSE 69; RESP 20
[2019-01-08 19:50] VITALS: BP 111/71; PULSE 79; RESP 19
[2019-01-09] VITALS: BP 109/76; PULSE 73; RESP 19
[2019-01-09] MEDS: TRIMETHOPRIM/SULFAMETHOXAZOLE 20 ML in DEXTROSE 5% 500 ML IVPB SCH ×2 (03:52→15:31)
[2019-01-09 04:00] VITALS: BP 120/83; PULSE 81; RESP 19
[2019-01-09] MEDS: HYDROCODONE/APAP (5/325) TAB PO PRN ×3 (04:06→19:53)
[2019-01-09 07:35] VITALS: BP 126/78; PULSE 73; RESP 20
[2019-01-09] MEDS: FAMOTIDINE 20 MG TAB PO SCH (09:32)
[2019-01-09] MEDS: RIFAMPIN 300 MG CAP PO SCH (09:32)
[2019-01-09 11:12] VITALS: BP 119/76; PULSE 80; RESP 20
[2019-01-09 15:07] VITALS: BP 124/75; PULSE 79; RESP 18
[2019-01-09 20:00] VITALS: BP 107/70; PULSE 84; RESP 19
[2019-01-10] VITALS (7 sets, daily range): BP systolic 110–118; BP diastolic 56–78; PULSE 74–99; RESP 18–20
[2019-01-10] MEDS: HYDROCODONE/APAP (5/325) TAB PO PRN ×3 (03:00→16:05)
[2019-01-10] MEDS: LORAZEPAM 2 MG INJ IV PRN (03:04)
[2019-01-10] MEDS: TRIMETHOPRIM/SULFAMETHOXAZOLE 20 ML in DEXTROSE 5% 500 ML IVPB SCH ×2 (04:05→16:05)
[2019-01-10] MEDS: RIFAMPIN 300 MG CAP PO SCH (08:45)
[2019-01-10] MEDS: FAMOTIDINE 20 MG TAB PO SCH (08:45)
[2019-01-10] MEDS ORDERED: CALCIUM CARBONATE 500 MG CHEW TAB PO PRN (18:30)
[2019-01-10] MEDS: KETOROLAC 30 MG INJ IV PRN (21:28)
[2019-01-11] MEDS: HYDROCODONE/APAP (5/325) TAB PO PRN ×4 (01:12→22:49)
[2019-01-11 04:04] VITALS: BP 103/59; PULSE 78; RESP 20
[2019-01-11] MEDS: TRIMETHOPRIM/SULFAMETHOXAZOLE 20 ML in DEXTROSE 5% 500 ML IVPB SCH ×2 (04:05→16:45)
[2019-01-11 07:17] VITALS: BP 110/62; PULSE 81; RESP 20
[2019-01-11] MEDS: RIFAMPIN 300 MG CAP PO SCH (08:59)
[2019-01-11] MEDS: FAMOTIDINE 20 MG TAB PO SCH (08:59)
[2019-01-11 10:56] VITALS: BP 110/67; PULSE 83; RESP 20
[2019-01-11 15:00] VITALS: BP 101/66; PULSE 81; RESP 20
[2019-01-11 19:47] VITALS: BP 111/75; PULSE 80; RESP 20
[2019-01-12 01:18] VITALS: BP 119/73; PULSE 79; RESP 20
[2019-01-12] MEDS: TRIMETHOPRIM/SULFAMETHOXAZOLE 20 ML in DEXTROSE 5% 500 ML IVPB SCH ×2 (04:59→15:09)
[2019-01-12] MEDS: HYDROCODONE/APAP (5/325) TAB PO PRN ×2 (05:05→18:19)
[2019-01-12 07:48] VITALS: BP 100/68; PULSE 71; RESP 17
[2019-01-12] MEDS: FAMOTIDINE 20 MG TAB PO SCH (08:52)
[2019-01-12] MEDS: RIFAMPIN 300 MG CAP PO SCH (08:52)
[2019-01-12 12:06] VITALS: BP 107/70; PULSE 83; RESP 17
[2019-01-12 13:54] VITALS: BP 94/63; PULSE 69
[2019-01-12 16:06] VITALS: BP 116/76; PULSE 74; RESP 17
[2019-01-12 19:57] VITALS: BP 105/57; PULSE 99; RESP 20
[2019-01-12] MEDS: morphine 2 MG INJ IV PRN (22:06)
[2019-01-13] VITALS: BP 94/51; PULSE 74; RESP 20
[2019-01-13] MEDS: HYDROCODONE/APAP (5/325) TAB PO PRN ×3 (01:19→20:02)
[2019-01-13 04:13] VITALS: BP 110/66; PULSE 98; RESP 20
[2019-01-13] MEDS: TRIMETHOPRIM/SULFAMETHOXAZOLE 20 ML in DEXTROSE 5% 500 ML IVPB SCH ×2 (05:15→16:44)
[2019-01-13 07:12] VITALS: BP 114/72; PULSE 72; RESP 17
[2019-01-13] MEDS: FAMOTIDINE 20 MG TAB PO SCH (08:18)
[2019-01-13] MEDS: RIFAMPIN 300 MG CAP PO SCH (08:18)
[2019-01-13 11:00] VITALS: BP 115/81; PULSE 82; RESP 17
[2019-01-13 15:22] VITALS: BP 115/84; PULSE 77; RESP 17
[2019-01-13 20:15] VITALS: BP 124/77; PULSE 72; RESP 18
[2019-01-14 00:03] VITALS: BP 100/71; PULSE 54; RESP 18
[2019-01-14 04:13] VITALS: BP 105/78; PULSE 67; RESP 18
[2019-01-14] MEDS: HYDROCODONE/APAP (5/325) TAB PO PRN ×2 (04:39→18:36)
[2019-01-14] MEDS: TRIMETHOPRIM/SULFAMETHOXAZOLE 20 ML in DEXTROSE 5% 500 ML IVPB SCH ×2 (04:39→15:44)
[2019-01-14 08:40] VITALS: BP 96/59; PULSE 67; RESP 18
[2019-01-14] MEDS: RIFAMPIN 300 MG CAP PO SCH (08:58)
[2019-01-14] MEDS: FAMOTIDINE 20 MG TAB PO SCH (08:58)
[2019-01-14 12:00] VITALS: BP 97/66; PULSE 77; RESP 18
[2019-01-14 16:01] VITALS: BP 107/63; PULSE 79; RESP 18
[2019-01-14 19:36] VITALS: BP 101/64; PULSE 78; RESP 17
[2019-01-15] VITALS (7 sets, daily range): BP systolic 90–113; BP diastolic 54–74; PULSE 70–84; RESP 17–20
[2019-01-15] MEDS: TRIMETHOPRIM/SULFAMETHOXAZOLE 20 ML in DEXTROSE 5% 500 ML IVPB SCH ×2 (04:53→17:04)
[2019-01-15] MEDS: HYDROCODONE/APAP (5/325) TAB PO PRN ×2 (05:09→20:56)
[2019-01-15] MEDS: RIFAMPIN 300 MG CAP PO SCH (08:38)
[2019-01-15] MEDS: FAMOTIDINE 20 MG TAB PO SCH (08:38)
[2019-01-16] MEDS: TRIMETHOPRIM/SULFAMETHOXAZOLE 20 ML in DEXTROSE 5% 500 ML IVPB SCH ×2 (03:56→16:47)
[2019-01-16 08:07] VITALS: BP 100/59; PULSE 80; RESP 18
[2019-01-16] MEDS: FAMOTIDINE 20 MG TAB PO SCH (08:23)
[2019-01-16] MEDS: RIFAMPIN 300 MG CAP PO SCH (08:23)
[2019-01-16 11:58] VITALS: BP 110/66; PULSE 77; RESP 18
[2019-01-16 15:24] VITALS: BP 108/57; PULSE 72; RESP 18
[2019-01-16 20:16] VITALS: BP 121/74; PULSE 82; RESP 18
[2019-01-16] MEDS: HYDROCODONE/APAP (5/325) TAB PO PRN (22:24)
[2019-01-17] VITALS: BP 100/51; PULSE 63; RESP 18
[2019-01-17] MEDS: TRIMETHOPRIM/SULFAMETHOXAZOLE 20 ML in DEXTROSE 5% 500 ML IVPB SCH ×2 (03:52→16:54)
[2019-01-17 04:00] VITALS: BP 108/58; PULSE 65; RESP 18
[2019-01-17] MEDS: FAMOTIDINE 20 MG TAB PO SCH (08:16)
[2019-01-17] MEDS: RIFAMPIN 300 MG CAP PO SCH (08:16)
[2019-01-17 08:25] VITALS: BP 92/55; PULSE 72; RESP 20
[2019-01-17 11:43] VITALS: BP 99/56; PULSE 70; RESP 18
[2019-01-17 15:24] VITALS: BP 100/55; PULSE 77; RESP 18
[2019-01-17] MEDS: HYDROCODONE/APAP (5/325) TAB PO PRN (18:57)
[2019-01-17 19:59] VITALS: BP 104/52; PULSE 71; RESP 18
[2019-01-18] VITALS (7 sets, daily range): BP systolic 90–114; BP diastolic 50–64; PULSE 62–83; RESP 18–20
[2019-01-18] MEDS: TRIMETHOPRIM/SULFAMETHOXAZOLE 20 ML in DEXTROSE 5% 500 ML IVPB SCH ×2 (03:57→16:27)
[2019-01-18] MEDS: FAMOTIDINE 20 MG TAB PO SCH (08:46)
[2019-01-18] MEDS: RIFAMPIN 300 MG CAP PO SCH (08:46)
[2019-01-18] MEDS: HYDROCODONE/APAP (5/325) TAB PO PRN (22:08)
[2019-01-19 04:13] VITALS: BP 121/58; PULSE 54; RESP 18
[2019-01-19] MEDS: TRIMETHOPRIM/SULFAMETHOXAZOLE 20 ML in DEXTROSE 5% 500 ML IVPB SCH ×2 (04:22→15:26)
[2019-01-19 07:23] VITALS: BP 140/66; PULSE 60; RESP 18
[2019-01-19] MEDS: FAMOTIDINE 20 MG TAB PO SCH (08:23)
[2019-01-19] MEDS: RIFAMPIN 300 MG CAP PO SCH (08:23)
[2019-01-19 11:30] VITALS: BP 111/64; PULSE 70; RESP 17
[2019-01-19 15:18] VITALS: BP 105/56; PULSE 68; RESP 18
== END 2019-01-19 17:57 | disposition home or self-care (01) | DRG 776 ==
LOC: E/R 15:13 → ICU 18:32 → TEL 01-06 20:10
PROVIDERS: ADMIT Internal Medicine; ATTEND Hospitalist
PROC: 0W9B3ZZ Drainage of Left Pleural Cavity, Percutaneous Approach (ICD-10-PCS; principal; 2019-01-06)
PROC: B24BZZ4 Ultrasonography of Heart with Aorta, Transesophageal (ICD-10-PCS; 2019-01-12)
DX: O85 Puerperal sepsis (principal); J18.1 Lobar pneumonia, unspecified organism; J90 Pleural effusion, not elsewhere classified; K56.0 Paralytic ileus; J98.11 Atelectasis; B95.62 Methicillin resistant Staphylococcus aureus infection as the cause of diseases classified elsewhere; O99.53 Diseases of the respiratory system complicating the puerperium; O14.95 Unspecified pre-eclampsia, complicating the puerperium; E87.6 Hypokalemia; O90.81 Anemia of the puerperium; D64.9 Anemia, unspecified; Y95 Nosocomial condition
CPT/HCPCS: 32555; 36415; 71045; 71275; 74177; 76700; 78806; 80048; 80053; 80061; 80202; 81001; 83036; 83605; 83615; 83735; 84100; 84157; 84439; 84443; 84484; 85025; 85610; 85730; 87070; 87081; 87086; 87102; 87116; 93005; 93306; 93312; 96365; 96375; 97116; 97163; 97530; A4310; A9570; J0692; J1885; J2001; J2060; J2270; J2405; J2765; J3010; J3370; J3475; J7030; J7060; Q9967